=== PATIENT | male | born 1965 | race Caucasian/White ===

== ENCOUNTER 2025-08-03 06:25 | Day surgery (SDC) | payer OTHER, SELFPAY | END 2025-08-03 08:40 | disposition home or self-care (01) | LOC: GI 06:25 | PROVIDERS: ATTENDING PHYSICIAN Internal Medicine Gastroenterology | DX: Z12.11 Encounter for screening for malignant neoplasm of colon (principal); K63.89 Other specified diseases of intestine; Z80.0 Family history of malignant neoplasm of digestive organs | CPT/HCPCS: 45380; 88305 ==